=== PATIENT | male | born 1970 | race Caucasian/White ===

== ENCOUNTER 2018-12-06 03:44 | Inpatient (IN) ==
[2018-12-06] MEDS ORDERED: SODIUM CHLORIDE 0.9% 1,000 ML IV STA (04:13)
[2018-12-06 04:38] LABS: Basophils % 0.5 % (0.0-0.8); Eosinophils # 0.3 10*3/uL (0.0-0.87); Eosinophils % 3.3 % (0.00-10.9); Hemoglobin 14.7 GM/DL (14.0-18.0); Immature Granulocytes % 0.7 %; Immature Granulocytes Absolute 0.05 #; Lymphocytes # 2.5 10*3/uL (1.4-4.0); Mean Corpuscular HGB Conc 33.4 GM/DL (32-36); Mean Corpuscular Volume 95.4 FL (87-102); Mean Platelet Volume 9.2 FL (9.6-12.0); Monocytes % 9.6 % (1.7-12.7); Neutrophils % 52.9 % (38.7-73.9); Platelet Count 267 T/CUMM (130-400); Red Blood Count 4.61 MC/CUMM (3.8-5.5); Red Cell Distribution Width 11.6 % (9.3-17.3); White Blood Count 7.6 T/CUMM (4-12)
[2018-12-06] MEDS ORDERED: MORPHINE 4 MG/1 ML VIAL IV STA (04:44)
[2018-12-06] MEDS ORDERED: ONDANSETRON 4 MG/2 ML VIAL IV STA ×2 (04:44→07:28)
[2018-12-06 04:57] LABS: Alanine Aminotransferase 32 U/L (16-61); Albumin 3.6 G/DL (3.4-5.0); Alkaline Phosphatase 108 U/L (45-117); Aspartate Amino Transferase 18 U/L (0-37); Bilirubin,Total < 0.39 MG/DL (0.2-1.0); Blood Urea Nitrogen 15 MG/DL (7-18); Calcium 8.6 MG/DL (8.5-10.1); Glucose 164 MG/DL (74-106); Osmolality,Calculated 279.7 MOS/KG (273-304)
[2018-12-06 05:55] LABS: Apearance,Urine CLEAR (Clear); Bacteria,Urine Occasional /HPF (Few); Bilirubin,Urine Negative (Negative); Blood, Urine Negative (Negative); Glucose,Urine (UA) >=500 mg/dL (Negative); Ketones,Urine Negative (Negative); Mucus,Urine Occasional /LPF (Occasional); Nitrite,Urine Negative (Negative); Protein,Urine Negative; RBC,Urine 3 /HPF (0-4); Squamous Epithelial Cell,Urine Occasional /HPF (0-10); Urine Color Yellow (Yellow); Urine Specific Gravity 1.035 (1.001-1.035); Urine Urobilinogen < 2.0 EU/DL (0.2-1.0); WBC,Urine <1 /HPF (0-6)
[2018-12-06] MEDS ORDERED: PIPERACILLIN/TAZOBACTAM 4,500 MG in SODIUM CHLORIDE 0.9% 100 ML IV STA (07:13)
[2018-12-06] MEDS ORDERED: HYDROmorphone 2 MG/1 ML VIAL IV STA (07:14)
[2018-12-06] MEDS ORDERED: PIPERACILLIN/TAZOBACTAM 3,375 MG in SODIUM CHLORIDE 0.9% 100 ML IV STA (07:15)
[2018-12-06] MEDS ORDERED: PIPERACILLIN/TAZOBACTAM 3,375 MG VIAL IV ONE (07:16)
[2018-12-06] MEDS ORDERED: HYDROmorphone 2 MG/1 ML VIAL ONE (07:16)
[2018-12-06] MEDS ORDERED: ACETAMINOPHEN 325 MG TABLET PO PRN (08:24)
[2018-12-06] MEDS ORDERED: PROMETHAZINE 25 MG TABLET PO PRN (08:24)
[2018-12-06] MEDS: SODIUM CHLORIDE 0.9% 1,000 ML IV SCH ×3 (09:39→21:16)
[2018-12-06] MEDS: ONDANSETRON 4 MG/2 ML VIAL IV PRN ×2 (11:12→16:22)
[2018-12-06] MEDS: PARoxetine 10 MG TABLET PO SCH ×2 (11:13→21:16)
[2018-12-06] MEDS: MORPHINE 4 MG/1 ML VIAL IV PRN ×3 (11:13→21:15)
[2018-12-06] MEDS: ATENOLOL 25 MG TABLET PO SCH (11:14)
[2018-12-06] MEDS: ALPRAZolam 0.5 MG TABLET PO SCH (11:14)
[2018-12-06 11:39] LABS: Risk Ratio 3.88; Thyroid Stimulating Hormone 2.59 uIU/ml (0.358-3.74); VLDL CHOLESTEROL 36.6 MG/DL
[2018-12-06] MEDS: ZALEPLON 5 MG CAPSULE PO SCH (21:16)
[2018-12-07] MEDS: MORPHINE 4 MG/1 ML VIAL IV PRN ×3 (02:00→11:06)
[2018-12-07 06:02] LABS: Basophils % 0.5 % (0.0-0.8); Eosinophils # 0.2 10*3/uL (0.0-0.87); Eosinophils % 2.4 % (0.00-10.9); Hematocrit 42.1 VOL% (42.0-52.0); Immature Granulocytes % 0.5 %; Immature Granulocytes Absolute 0.04 #; Lymphocytes # 1.8 10*3/uL (1.4-4.0); Lymphocytes % 23.1 % (21.2-54.2); Mean Corpuscular HGB Conc 33.3 GM/DL (32-36); Mean Corpuscular Volume 95.9 FL (87-102); Mean Platelet Volume 9.3 FL (9.6-12.0); Monocytes % 8.4 % (1.7-12.7); Neutrophils % 65.1 % (38.7-73.9); Platelet Count 249 T/CUMM (130-400); Red Blood Count 4.39 MC/CUMM (3.8-5.5); Red Cell Distribution Width 11.7 % (9.3-17.3); White Blood Count 7.8 T/CUMM (4-12)
[2018-12-07 06:19] LABS: Calcium 8.1 MG/DL (8.5-10.1); Osmolality,Calculated 276.7 MOS/KG (273-304)
[2018-12-07] MEDS: SODIUM CHLORIDE 0.9% 1,000 ML IV SCH (06:55)
[2018-12-07] MEDS: ALPRAZolam 0.5 MG TABLET PO SCH (08:08)
[2018-12-07] MEDS: PARoxetine 10 MG TABLET PO SCH ×2 (08:08→20:13)
[2018-12-07] MEDS: ATENOLOL 25 MG TABLET PO SCH (08:08)
[2018-12-07] MEDS: HYDROmorphone 2 MG/1 ML VIAL IV PRN ×3 (14:39→21:36)
[2018-12-07] MEDS: LACTATED RINGERS 1,000 ML IV SCH ×3 (14:39→22:56)
[2018-12-07] MEDS: ONDANSETRON 4 MG/2 ML VIAL IV PRN (20:13)
[2018-12-07] MEDS: ZALEPLON 5 MG CAPSULE PO SCH (20:13)
[2018-12-07] MEDS: DOCUSATE SODIUM 100 MG CAPSULE PO PRN (21:41)
[2018-12-08] MEDS: HYDROmorphone 2 MG/1 ML VIAL IV PRN ×2 (01:36→06:15)
[2018-12-08] MEDS: LACTATED RINGERS 1,000 ML IV SCH ×5 (02:55→23:28)
[2018-12-08 05:18] LABS: Basophils % 0.3 % (0.0-0.8); Eosinophils # 0.2 10*3/uL (0.0-0.87); Eosinophils % 2.6 % (0.00-10.9); Hematocrit 37.9 VOL% (42.0-52.0); Hemoglobin 13.1 GM/DL (14.0-18.0); Immature Granulocytes % 0.3 %; Immature Granulocytes Absolute 0.02 #; Lymphocytes # 1.8 10*3/uL (1.4-4.0); Lymphocytes % 27.6 % (21.2-54.2); Mean Corpuscular HGB Conc 34.6 GM/DL (32-36); Mean Corpuscular Volume 94.5 FL (87-102); Mean Platelet Volume 9.6 FL (9.6-12.0); Monocytes % 8.9 % (1.7-12.7); Neutrophils % 60.3 % (38.7-73.9); Platelet Count 201 T/CUMM (130-400); Red Blood Count 4.01 MC/CUMM (3.8-5.5); Red Cell Distribution Width 11.5 % (9.3-17.3); White Blood Count 6.6 T/CUMM (4-12)
[2018-12-08 05:38] LABS: Calcium 7.9 MG/DL (8.5-10.1); Osmolality,Calculated 275.7 MOS/KG (273-304)
[2018-12-08] MEDS: ONDANSETRON 4 MG/2 ML VIAL IV PRN (06:22)
[2018-12-08] MEDS: PARoxetine 10 MG TABLET PO SCH ×2 (08:18→20:03)
[2018-12-08] MEDS: DOCUSATE SODIUM 100 MG CAPSULE PO PRN ×2 (08:18→20:02)
[2018-12-08] MEDS: ATENOLOL 25 MG TABLET PO SCH (08:18)
[2018-12-08] MEDS: ALPRAZolam 0.5 MG TABLET PO SCH (08:18)
[2018-12-08] MEDS ORDERED: MORPHINE 4 MG/1 ML VIAL IV PRN (09:33)
[2018-12-08] MEDS: MORPHINE 4 MG/1 ML VIAL IV PRN ×3 (12:35→22:06)
[2018-12-08] MEDS: ZALEPLON 5 MG CAPSULE PO SCH (20:03)
[2018-12-08] MEDS ORDERED: ZOLPIDEM 12.5 MG PO SCH (21:00)
[2018-12-09] MEDS: MORPHINE 4 MG/1 ML VIAL IV PRN ×3 (00:41→04:39)
[2018-12-09] MEDS: LACTATED RINGERS 1,000 ML IV SCH ×6 (03:30→20:05)
[2018-12-09 05:21] LABS: Basophils % 0.4 % (0.0-0.8); Eosinophils # 0.2 10*3/uL (0.0-0.87); Eosinophils % 2.2 % (0.00-10.9); Hematocrit 40.7 VOL% (42.0-52.0); Hemoglobin 13.8 GM/DL (14.0-18.0); Immature Granulocytes % 0.4 %; Immature Granulocytes Absolute 0.03 #; Lymphocytes % 28.6 % (21.2-54.2); Mean Corpuscular HGB Conc 33.9 GM/DL (32-36); Mean Corpuscular Volume 93.6 FL (87-102); Mean Platelet Volume 9.2 FL (9.6-12.0); Monocytes % 9.1 % (1.7-12.7); Neutrophils % 59.3 % (38.7-73.9); Platelet Count 228 T/CUMM (130-400); Red Blood Count 4.35 MC/CUMM (3.8-5.5); Red Cell Distribution Width 11.4 % (9.3-17.3); White Blood Count 6.9 T/CUMM (4-12)
[2018-12-09 05:43] LABS: Calcium 8.5 MG/DL (8.5-10.1); Osmolality,Calculated 273.7 MOS/KG (273-304)
[2018-12-09 05:48] LABS: Albumin 3.5 G/DL (3.4-5.0); Bilirubin,Total 1.2 MG/DL (0.2-1.0); Calcium 8.7 MG/DL (8.5-10.1); Osmolality,Calculated 270.8 MOS/KG (273-304); Total Protein 6.8 G/DL (6.4-8.3)
[2018-12-09] MEDS ORDERED: cefOXitin 2,000 MG in SYRINGE 1 EACH IV ONE (06:00)
[2018-12-09] MEDS ORDERED: LORazepam 2 MG/1 ML VIAL IV PRN (07:37)
[2018-12-09] MEDS ORDERED: ATENOLOL 25 MG TABLET PO STA (08:20)
[2018-12-09] MEDS: HYDROmorphone 2 MG/1 ML VIAL IV PRN ×8 (09:36→21:13)
[2018-12-09] MEDS ORDERED: BUPIVACAINE MPF 0.25% /EPI 30 ML VIAL ONE (09:49)
[2018-12-09] MEDS ORDERED: TISSUE ADHESIVE 1 EACH APPLICATOR TOP ONE (09:49)
[2018-12-09] MEDS ORDERED: LIDOCAINE 1%/EPI INJ 20 ML VIAL ONE (09:49)
[2018-12-09] MEDS: ATENOLOL 25 MG TABLET PO SCH (10:33)
[2018-12-09] MEDS ORDERED: PROMETHAZINE INJ 25 MG in SODIUM CHLORIDE 0.9% 50 ML IV PRN (12:23)
[2018-12-09] MEDS ORDERED: ONDANSETRON 4 MG/2 ML VIAL IV PRN (12:23)
[2018-12-09] MEDS ORDERED: MEPERIDINE 25 MG/1 ML VIAL IV PRN (12:23)
[2018-12-09] MEDS ORDERED: PROPOFOL 200 MG/20 ML VIAL IV ONE (12:27)
[2018-12-09] MEDS ORDERED: MIDAZOLAM 2 MG/2 ML VIAL ONE (12:27)
[2018-12-09] MEDS ORDERED: SEVOFLURANE 1 UNIT/15 MINUTE INH ONE (12:27)
[2018-12-09] MEDS ORDERED: NEOSTIGMINE 10 MG/10 ML VIAL ONE (12:28)
[2018-12-09] MEDS ORDERED: GLYCOPYRROLATE 0.4 MG/2 ML VIAL ONE (12:28)
[2018-12-09] MEDS ORDERED: PHENYLEPHRINE 1 MG/10 ML SYRINGE IV ONE (12:28)
[2018-12-09] MEDS ORDERED: ROCURONIUM 100 MG/10 ML VIAL IV ONE (12:28)
[2018-12-09] MEDS ORDERED: ePHEDrine 50 MG/ML AMP ONE (12:28)
[2018-12-09] MEDS ORDERED: PROMETHAZINE 25 MG/1 ML VIAL ONE (12:28)
[2018-12-09] MEDS ORDERED: SUCCINYLCHOLINE 200 MG/10 ML VIAL ONE (12:28)
[2018-12-09] MEDS ORDERED: ALBUTEROL INHALER 8 GM INH ONE (12:28)
[2018-12-09] MEDS ORDERED: LACTATED RINGERS 1,000 ML IV ONE (12:29)
[2018-12-09] MEDS ORDERED: fentaNYL 100 MCG/2 ML VIAL ONE (12:30)
[2018-12-09] MEDS: ALPRAZolam 0.5 MG TABLET PO SCH (13:37)
[2018-12-09] MEDS: PARoxetine 10 MG TABLET PO SCH ×2 (13:37→21:15)
[2018-12-09] MEDS: ZALEPLON 5 MG CAPSULE PO SCH (21:12)
[2018-12-10] MEDS: HYDROmorphone 2 MG/1 ML VIAL IV PRN ×6 (01:21→20:34)
[2018-12-10] MEDS: LACTATED RINGERS 1,000 ML IV SCH ×3 (02:17→08:25)
[2018-12-10 05:38] LABS: Basophils % 0.4 % (0.0-0.8); Eosinophils # 0.1 10*3/uL (0.0-0.87); Eosinophils % 1.4 % (0.00-10.9); Hematocrit 38.3 VOL% (42.0-52.0); Hemoglobin 12.9 GM/DL (14.0-18.0); Immature Granulocytes % 0.3 %; Immature Granulocytes Absolute 0.02 #; Lymphocytes # 1.6 10*3/uL (1.4-4.0); Lymphocytes % 22.2 % (21.2-54.2); Mean Corpuscular HGB Conc 33.7 GM/DL (32-36); Mean Corpuscular Volume 95.3 FL (87-102); Mean Platelet Volume 9.6 FL (9.6-12.0); Monocytes % 11.2 % (1.7-12.7); Neutrophils % 64.5 % (38.7-73.9); Platelet Count 217 T/CUMM (130-400); Red Blood Count 4.02 MC/CUMM (3.8-5.5); Red Cell Distribution Width 11.7 % (9.3-17.3); White Blood Count 7.4 T/CUMM (4-12)
[2018-12-10 06:06] LABS: Albumin 3.2 G/DL (3.4-5.0); Bilirubin,Direct 0.14 MG/DL (0.0-0.20); Bilirubin,Total 1.1 MG/DL (0.2-1.0); Total Protein 6.2 G/DL (6.4-8.3)
[2018-12-10] MEDS: PARoxetine 10 MG TABLET PO SCH ×2 (08:21→20:35)
[2018-12-10] MEDS: ALPRAZolam 0.5 MG TABLET PO SCH (08:22)
[2018-12-10] MEDS: ATENOLOL 25 MG TABLET PO SCH (08:22)
[2018-12-10] MEDS ORDERED: cefOXitin 2,000 MG in SYRINGE 1 EACH IV ONE (12:07)
[2018-12-10] MEDS ORDERED: BUPIVACAINE MPF 0.25% 30 ML VIAL ONE (12:55)
[2018-12-10] MEDS ORDERED: LIDOCAINE 1%/EPI INJ 20 ML VIAL ONE (12:55)
[2018-12-10] MEDS ORDERED: PROPOFOL 200 MG/20 ML VIAL IV ONE (14:29)
[2018-12-10] MEDS ORDERED: SEVOFLURANE 1 UNIT/15 MINUTE INH ONE (14:30)
[2018-12-10] MEDS ORDERED: MIDAZOLAM 2 MG/2 ML VIAL ONE (14:30)
[2018-12-10] MEDS ORDERED: fentaNYL 100 MCG/2 ML VIAL ONE (14:30)
[2018-12-10] MEDS ORDERED: ePHEDrine 50 MG/ML AMP ONE (14:31)
[2018-12-10] MEDS ORDERED: ROCURONIUM 100 MG/10 ML VIAL IV ONE (14:31)
[2018-12-10] MEDS ORDERED: ONDANSETRON 4 MG/2 ML VIAL ONE (14:32)
[2018-12-10] MEDS ORDERED: GLYCOPYRROLATE 0.4 MG/2 ML VIAL ONE (14:32)
[2018-12-10] MEDS ORDERED: NEOSTIGMINE 10 MG/10 ML VIAL ONE (14:32)
[2018-12-10] MEDS ORDERED: LACTATED RINGERS 1,000 ML IV ONE (14:32)
[2018-12-10] MEDS: DOCUSATE SODIUM 100 MG CAPSULE PO PRN (20:34)
[2018-12-10] MEDS: ZALEPLON 5 MG CAPSULE PO SCH (20:35)
[2018-12-11] MEDS: HYDROmorphone 2 MG/1 ML VIAL IV PRN ×2 (00:46→04:45)
[2018-12-11 05:33] LABS: Basophils % 0.6 % (0.0-0.8); Eosinophils # 0.2 10*3/uL (0.0-0.87); Eosinophils % 3.4 % (0.00-10.9); Hematocrit 39.2 VOL% (42.0-52.0); Hemoglobin 13.2 GM/DL (14.0-18.0); Immature Granulocytes % 0.3 %; Immature Granulocytes Absolute 0.02 #; Lymphocytes # 1.8 10*3/uL (1.4-4.0); Lymphocytes % 28.7 % (21.2-54.2); Mean Corpuscular HGB Conc 33.7 GM/DL (32-36); Mean Corpuscular Volume 95.4 FL (87-102); Mean Platelet Volume 9.4 FL (9.6-12.0); Monocytes % 12.5 % (1.7-12.7); Neutrophils % 54.5 % (38.7-73.9); Platelet Count 213 T/CUMM (130-400); Red Blood Count 4.11 MC/CUMM (3.8-5.5); Red Cell Distribution Width 11.6 % (9.3-17.3); White Blood Count 6.4 T/CUMM (4-12)
[2018-12-11 07:39] VITALS: BP 149/86
[2018-12-11] MEDS: ATENOLOL 25 MG TABLET PO SCH (08:14)
[2018-12-11] MEDS: ALPRAZolam 0.5 MG TABLET PO SCH (08:14)
[2018-12-11] MEDS: PARoxetine 10 MG TABLET PO SCH (08:14)
[2018-12-11] MEDS ORDERED: POLYETHYLENE GLYCOL POWDER 17 GM PACK PO SCH (09:00)
== END 2018-12-11 12:30 | disposition home or self-care (01) | DRG 263 ==
LOC: EDBD → EDUNIT# → N.ED 03:44 → SUATTDRO 08:24 → N.EDINP 08:24 → N.5E 08:50
PROVIDERS: ADMIT Physician Assistant; ATTEND Internal Medicine
PROC: LAPCHOL (2018-12-09 10:35)

== ENCOUNTER 2019-07-13 10:10 | Observation (INO) ==
[2019-07-13] MEDS ORDERED: SODIUM CHLORIDE 0.9% 1,000 ML IV STA (10:35)
[2019-07-13] MEDS ORDERED: ONDANSETRON 4 MG/2 ML VIAL IV STA (10:35)
[2019-07-13] MEDS ORDERED: fentaNYL 100 MCG/2 ML VIAL IV STA ×2 (10:36→13:13)
[2019-07-13 10:48] LABS: Basophils # 0.1 10*3/uL (0.0-0.2); Basophils % 0.8 % (0.0-0.8); Eosinophils # 0.4 10*3/uL (0.0-0.87); Eosinophils % 5.7 % (0.00-10.9); Hematocrit 44.6 VOL% (42.0-52.0); Hemoglobin 15.6 GM/DL (14.0-18.0); Immature Granulocytes % 0.3 %; Immature Granulocytes Absolute 0.02 #; Lymphocytes % 30.3 % (21.2-54.2); Mean Corpuscular Volume 93.3 FL (87-102); Mean Platelet Volume 9.2 FL (9.6-12.0); Monocytes % 10.7 % (1.7-12.7); Neutrophils % 52.2 % (38.7-73.9); Platelet Count 248 T/CUMM (130-400); Red Blood Count 4.78 MC/CUMM (3.8-5.5); Red Cell Distribution Width 11.4 % (9.3-17.3); White Blood Count 6.5 T/CUMM (4-12)
[2019-07-13 11:04] LABS: Apearance,Urine CLEAR (Clear); Bilirubin,Urine Negative (Negative); Blood, Urine Negative (Negative); Glucose,Urine (UA) >=500 mg/dL (Negative); Ketones,Urine Negative (Negative); Nitrite,Urine Negative (Negative); Protein,Urine Negative; RBC,Urine 2 /HPF (0-4); Urine Color Straw (Yellow); Urine Specific Gravity 1.007 (1.001-1.035); Urine Urobilinogen < 2.0 EU/DL (0.2-1.0); WBC,Urine <1 /HPF (0-6)
[2019-07-13 11:08] LABS: Albumin 3.7 G/DL (3.4-5.0); Bilirubin,Total 0.9 MG/DL (0.2-1.0); Calcium 8.7 MG/DL (8.5-10.1); Total Protein 7.2 G/DL (6.4-8.3)
[2019-07-13] MEDS ORDERED: BISACODYL 5 MG TABLET PO PRN (14:17)
[2019-07-13] MEDS ORDERED: DEXTROSE 50% 25 GM/50 ML VIAL IV PRN (14:17)
[2019-07-13] MEDS ORDERED: GLUCAGON 1 MG VIAL IM PRN (14:17)
[2019-07-13] MEDS ORDERED: diphenhydrAMINE 50 MG/1 ML VIAL IV PRN (14:21)
[2019-07-13] MEDS ORDERED: MECLIZINE 12.5 MG TABLET PO PRN (14:21)
[2019-07-13] MEDS: HYDROmorphone 2 MG/1 ML VIAL IV PRN ×2 (18:15→21:35)
[2019-07-13] MEDS: ONDANSETRON 4 MG/2 ML VIAL IV PRN (18:19)
[2019-07-13] MEDS: INSULIN LISPRO 100 UNIT/ML SUBCUT SCH (18:37)
[2019-07-13] MEDS: BACLOFEN 10 MG TABLET PO PRN (19:20)
[2019-07-14] MEDS: HYDROmorphone 2 MG/1 ML VIAL IV PRN ×3 (02:00→08:40)
[2019-07-14 05:56] LABS: Basophils # 0.1 10*3/uL (0.0-0.2); Basophils % 0.8 % (0.0-0.8); Eosinophils # 0.5 10*3/uL (0.0-0.87); Eosinophils % 6.5 % (0.00-10.9); Hematocrit 43.5 VOL% (42.0-52.0); Hemoglobin 14.6 GM/DL (14.0-18.0); Immature Granulocytes % 0.3 %; Immature Granulocytes Absolute 0.02 #; Lymphocytes # 2.5 10*3/uL (1.4-4.0); Mean Corpuscular HGB Conc 33.6 GM/DL (32-36); Mean Corpuscular Volume 96.2 FL (87-102); Mean Platelet Volume 9.6 FL (9.6-12.0); Monocytes % 10.2 % (1.7-12.7); Neutrophils % 47.2 % (38.7-73.9); Platelet Count 250 T/CUMM (130-400); Red Blood Count 4.52 MC/CUMM (3.8-5.5); Red Cell Distribution Width 11.6 % (9.3-17.3); White Blood Count 7.1 T/CUMM (4-12)
[2019-07-14 06:13] LABS: Osmolality,Calculated 280.7 MOS/KG (273-304)
[2019-07-14] MEDS: ONDANSETRON 4 MG/2 ML VIAL IV PRN (06:58)
[2019-07-14] MEDS: INSULIN LISPRO 100 UNIT/ML SUBCUT SCH ×2 (08:40→13:09)
[2019-07-14] MEDS ORDERED: PROMETHAZINE 25 MG TABLET PO PRN (08:47)
[2019-07-14] MEDS ORDERED: ATENOLOL 25 MG TABLET PO SCH (09:00)
[2019-07-14] MEDS ORDERED: PANTOPRAZOLE 40 MG TABLET PO SCH (09:00)
[2019-07-14 11:55] VITALS: BP 136/92
[2019-07-14] MEDS: BACLOFEN 10 MG TABLET PO PRN (11:57)
== END 2019-07-14 13:02 | disposition home or self-care (01) ==
LOC: N.EDINP 10:10 → N.ED 10:10 → N.3E 15:14
PROVIDERS: ADMIT Surgery; ATTEND Surgery